=== PATIENT | male | born 1930 | race Caucasian/White ===

== ENCOUNTER 2017-03-13 09:43 | Outpatient (CLI) | payer MEDICARE ==
--- NOTE | 2017-03-13 11:04 | RAD ---
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 COMPARISON: Prior exam dated 12/13/2016. FINDINGS: There is slight elevation of the left hemidiaphragm, which is stable. Mild hazy opacity within the l eft lower lobe is similar. Chronic lung changes are otherwise similar. Heart size and pulmonary vas culature are within normal limits. The wedge compression abnormality of T12 is stable. IMPRESSION: 1. Stable exam. 2. Chronic lung change involving left lower lobe with elevation of the left hemidiaphragm. 3. Stable compression abnormality of T12. POS: [facility]
== END 2017-03-13 09:44 | disposition home or self-care (01) ==
LOC: RAD 09:43
PROVIDERS: ATTEND Thoracic Surgery (Cardiothoracic Vascular Surgery)
DX: C34.12 Malignant neoplasm of upper lobe, left bronchus or lung (principal)
CPT/HCPCS: 71020

== ENCOUNTER 2017-10-04 14:28 | Outpatient (CLI) | payer MEDICARE ==
--- NOTE | 2017-10-04 14:50 | RAD ---
TWO VIEW CHEST: History: Dyspnea. Comparison: 03-13-17 FINDINGS/IMPRESSION: Mild elevation of left hemidiaphragm again noted. Stranding in the left base is again seen. No eviden ce of infiltrate or vascular congestion. Heart size is normal. No evidence of acute process or signif icant interval change. POS: [facility]
== END 2017-10-04 14:29 | disposition home or self-care (01) ==
LOC: RAD 14:28
PROVIDERS: ATTEND Thoracic Surgery (Cardiothoracic Vascular Surgery)
DX: C34.12 Malignant neoplasm of upper lobe, left bronchus or lung (principal)
CPT/HCPCS: 71046

== ENCOUNTER 2018-01-17 12:06 | Outpatient (CLI) | payer MEDICARE ==
--- NOTE | 2018-01-17 13:12 | RAD ---
PA AND LATERAL CHEST X-RAY: 01/17/2018 HISTORY: Lung cancer. COMPARISON: 10/05/2015 FINDINGS: The cardiac silhouette and pulmonary vasculature are within normal limits. There is mild elevation o f the left hemidiaphragm with surgical clips again seen in the left hilar region. There is linear sc arring again present at the left lung base. The lungs are otherwise clear. No discrete pulmonary no dule or mass is visualized on this exam. Vascular calcifications are seen in the thoracic aorta. Th ere is a stable wedge-shaped compression fracture at the T12 vertebral body. No other interval smith e. IMPRESSION: 1. Stable chest without evidence of an acute cardiopulmonary process. 2. Post surgical changes, left hemithorax. 3. Stable wedge shaped compression fracture of the T12 vertebral body. POS: [facility]
== END 2018-01-17 12:07 | disposition home or self-care (01) ==
LOC: RAD 12:06
PROVIDERS: ATTEND Internal Medicine Critical Care Medicine
DX: C34.90 Malignant neoplasm of unspecified part of unspecified bronchus or lung (principal); S22.080A Wedge compression fracture of T11-T12 vertebra, initial encounter for closed fracture; Z98.890 Other specified postprocedural states
CPT/HCPCS: 71046

== ENCOUNTER 2018-04-04 10:17 | Outpatient (CLI) | payer MEDICARE ==
--- NOTE | 2018-04-04 12:30 | RAD ---
TWO VIEWS CHEST: History: 87-year-old male with history of malignant neoplasm of the lung. Follow up. Comparison: 01-17-18 FINDINGS: Stable left costophrenic angle blunting, mild left hemidiaphragm elevation, and some pleural based sc arring. Heart size is normal. Tiny right upper lobe granuloma calcification. No confluent pneumonia, overt edema, or pleural effusion. IMPRESSION: Stable chest. No evidence of metastasis. Atherosclerosis of the aorta with ectasia. POS: [facility]
== END 2018-04-04 10:18 | disposition home or self-care (01) ==
LOC: RAD 10:17
PROVIDERS: ATTEND Thoracic Surgery (Cardiothoracic Vascular Surgery)
DX: C34.12 Malignant neoplasm of upper lobe, left bronchus or lung (principal); I70.0 Atherosclerosis of aorta; I77.819 Aortic ectasia, unspecified site
CPT/HCPCS: 71046

== ENCOUNTER 2019-01-09 13:28 | Outpatient (CLI) | payer MEDICARE ==
--- NOTE | 2019-01-09 13:54 | RAD ---
EXAM: Chest 2 views: HISTORY: Left upper lobe neoplasm COMPARISON: 03/27/2018 FINDINGS: There is a normal-sized cardiomediastinal silhouette. There is no evidence of consolidation, mass, or pleural effusion. Degenerative changes are seen in the spine. IMPRESSION: No evidence of acute cardiopulmonary disease
== END 2019-01-09 13:29 | disposition home or self-care (01) ==
LOC: RAD 13:28
PROVIDERS: ATTEND Thoracic Surgery (Cardiothoracic Vascular Surgery)
DX: C34.12 Malignant neoplasm of upper lobe, left bronchus or lung (principal)
CPT/HCPCS: 71046

== ENCOUNTER 2019-02-20 14:05 | Outpatient (CLI) | payer MEDICARE ==
--- NOTE | 2019-02-20 14:20 | RAD ---
XR Chest Pa Lat @ [facility] HISTORY: Dyspnea COMPARISON: 01/09/2019 FINDINGS: The heart size is normal. The lungs are well expanded without focal areas of consolidation, pneumothorax or pleural effusions. There is continued elevation of the left hemidiaphragm. Mild chronic changes are stable. There are de generative changes in the spine. IMPRESSION: No radiographic evidence of acute cardiopulmonary process.
== END 2019-02-20 14:06 | disposition home or self-care (01) ==
LOC: RAD 14:05
PROVIDERS: ATTEND Internal Medicine Critical Care Medicine
DX: R06.00 Dyspnea, unspecified (principal)
CPT/HCPCS: 71046

== ENCOUNTER 2020-03-26 07:38 | Outpatient (CLI) | payer MEDICARE ==
--- NOTE | 2020-03-26 08:55 | RAD ---
CHEST 2 VIEWS: HISTORY: Dyspnea. COMPARISON: 02/20/2019. FINDINGS: Minimal elevation of the left hemidiaphragm and blunting of the left costophrenic angle, stable. Hea rt within normal limits. No confluent pneumonia, overt edema, or pleural effusion. IMPRESSION: No significant acute intrathoracic disease. Stable from prior study. POS: [facility]
== END 2020-03-26 07:39 | disposition home or self-care (01) ==
LOC: BICRAD 07:38
PROVIDERS: ATTEND Internal Medicine Critical Care Medicine
DX: R06.00 Dyspnea, unspecified (principal)
CPT/HCPCS: 71046

== ENCOUNTER 2020-07-28 11:49 | Outpatient (CLI) | payer MEDICARE | END 2020-07-28 11:50 | disposition home or self-care (01) | LOC: RAD 11:49 | PROVIDERS: ATTEND Thoracic Surgery (Cardiothoracic Vascular Surgery) | DX: C34.12 Malignant neoplasm of upper lobe, left bronchus or lung (principal) | CPT/HCPCS: 71046 ==

== ENCOUNTER 2020-09-17 16:22 | Outpatient (CLI) | payer MEDICARE | END 2020-09-17 16:23 | disposition home or self-care (01) | LOC: LABBT 16:22 | PROVIDERS: ATTEND Thoracic Surgery (Cardiothoracic Vascular Surgery) | DX: Z01.812 Encounter for preprocedural laboratory examination (principal); I25.10 Atherosclerotic heart disease of native coronary artery without angina pectoris; Z20.822 Contact with and (suspected) exposure to COVID-19 | CPT/HCPCS: 80048; 85027; U0003; U0005; 86850; 86900; 86901; 87635 ==

== ENCOUNTER 2020-09-17 16:30 | Inpatient (IN) | payer MEDICARE ==
[2020-09-17 17:59] LABS: Hemoglobin 12.6 g/dL (13.5-17.5); Mean Corpuscular HGB CONC 31.9 g/dL (32.0-36.0); Mean Corpuscular Hemoglobin 29.6 pg (27.0-33.0); Mean Corpuscular Volume 92.9 fl (81.2-95.1); Mean Platelet Volume 11.2 fl (7.4-10.4); Platelet Count 188 10x3/uL (150-450); RBC Distribution Width 15.3 % (11.5-14.5); Red Blood Cell (RBC) Count 4.25 10x6/uL (4.32-5.72); White Blood Cell (WBC) Count 5.7 10x3/uL (3.5-10.5)
[2020-09-17 18:09] LABS: Anion Gap 12 mmol/L (10-20); BUN (Urea Nitrogen) 17 mg/dL (8.4-25.7); Calc. Creatinine Clearance 0 mL/min (70-130); Calcium 9.3 mg/dL (7.8-10.44); Carbon Dioxide 28 mmol/L (23-31); Chloride 104 mmol/L (98-107); Glucose 84 mg/dL (83-110); Potassium 4.3 mmol/L (3.5-5.1); Sodium 140 mmol/L (136-145)
[2020-09-18 01:47] LABS: SARS-CoV-2 PCR by NAA Not Detected (NotDetected)
[2020-09-22] MEDS ORDERED: Albumin 5% 500 ML ONE (06:18)
[2020-09-22] MEDS ORDERED: Dexamethasone 4 mg/ml Vial ONE (06:18)
[2020-09-22] MEDS ORDERED: Bupivacaine PF 0.5% 30 ML VIAL ONE (06:18)
[2020-09-22] MEDS ORDERED: EPINEPHrine 1 MG/ML AMP ONE ×2 (06:18→07:39)
[2020-09-22] MEDS ORDERED: Midazolam HCl 2 mg/2 ml Vial ONE (06:59)
[2020-09-22] MEDS ORDERED: Fentanyl 100 MCG/2 ML VIAL ONE (06:59)
[2020-09-22] MEDS ORDERED: Magnesium Sulfate 1 GM/2 ML VIAL ONE (07:39)
[2020-09-22] MEDS ORDERED: Aminocaproic Acid 5 GM/20 ML VIAL ONE (07:39)
[2020-09-22] MEDS ORDERED: Calcium Chloride 1 GM/10 ML Abboject SYRINGE ONE (07:39)
[2020-09-22] MEDS ORDERED: Potassium Chloride 60 MEQ/30 ML VIAL ONE (07:39)
[2020-09-22] MEDS ORDERED: Heparin 30,000 units/30 ml VIAL ONE (07:39)
[2020-09-22] MEDS ORDERED: Papaverine 60 MG/2 ML VIAL ONE (07:39)
[2020-09-22] MEDS ORDERED: Sodium Bicarb 50 MEQ/50 ML Abboject 8.4% SYRINGE ONE (07:39)
[2020-09-22] MEDS ORDERED: Mannitol 12.5 GM/50 ML ONE (07:39)
[2020-09-22] MEDS ORDERED: PROPOFOL 200 MG/20 ML VIAL ONE (07:39)
[2020-09-22] MEDS ORDERED: Heparin 5,000 UNITS/ML VIAL ONE (07:39)
[2020-09-22] MEDS ORDERED: Thrombin 5000 UNITS/5 ML VIAL ONE (07:39)
[2020-09-22] MEDS ORDERED: Vecuronium 10 MG VIAL ONE (07:39)
[2020-09-22] MEDS ORDERED: Nitroglycerin 50 MG/250 ML BOT ONE (07:39)
[2020-09-22] MEDS ORDERED: Lidocaine 2% PF 100 mg/5 ml Syringe ONE (07:39)
[2020-09-22] MEDS ORDERED: Nitroglycerin 50 MG/250 ML BOT 250 ML IVPB PRN (11:08)
[2020-09-22] MEDS ORDERED: Ondansetron PF 4 MG/2 ML Vial IVP PRN (11:08)
[2020-09-22] MEDS ORDERED: Morphine 2 MG/ML VIAL SLOW IVP PRN (11:08)
[2020-09-22] MEDS ORDERED: Fentanyl 100 MCG/2 ML VIAL SLOW IVP PRN ×2 (11:08)
[2020-09-22] MEDS ORDERED: Phenylephrine 40 MG in Sodium Chloride 0.9% 250 ML 250 ML IVPB PRN (11:08)
[2020-09-22] MEDS ORDERED: Promethazine HCl 25 MG/ML VIAL IM PRN (11:08)
[2020-09-22] MEDS ORDERED: Potassium Chloride 20 MEQ/100 ML PREMIX BAG IVPB PRN (11:08)
[2020-09-22] MEDS ORDERED: Acetaminophen 325 MG TAB PO PRN (11:08)
[2020-09-22] MEDS ORDERED: Bisacodyl 5 MG TAB PO PRN (11:08)
[2020-09-22] MEDS ORDERED: Hetastarch 6% 500 ML 500 ML IVPB PRN (11:08)
[2020-09-22] MEDS ORDERED: hydrALAZINE 20 MG/ML VIAL SLOW IVP PRN (11:08)
[2020-09-22] MEDS ORDERED: Bisacodyl 10 MG SUPP PR PRN (11:08)
[2020-09-22] MEDS ORDERED: Mag-Al 1200 mg/1200 mg/30 ML UDCUP PO PRN (11:08)
[2020-09-22] MEDS ORDERED: D5 1/2 NS w/20 mEq KCL 1,000 ML IV SCH (11:08)
[2020-09-22] MEDS ORDERED: traMADol HCl 50 MG TAB PO PRN ×2 (11:08)
[2020-09-22] MEDS ORDERED: Guaifenesin DM 100-10/5 ML UDCUP PO PRN (11:08)
[2020-09-22 11:22] LABS: Actual Bicarbonate (HCO3a) 22.8 mEq/L (22-28); Base Excess (BEa) -1.3 mEq/L (-2.0 to +3.0); CO2 Tension 35.8 mmHg (35.0-45.0); Calcium, Ionized (arterial) 1.06 mmol/L (1.12-1.30); Carboxyhemoglobin (COHb) 0.2 gm% (0.0-3.0); Hemoglobin (Hb) 10.8 g/dL (14.0-18.0); O2 Tension (PaO2), arterial 207.1 mmHg (> 60.0); Potassium - ABG Lab 4.16 mmol/L (3.70-5.30); Puncture Site Arterial Line; pH, Arterial 7.42 (7.35-7.45)
[2020-09-22] MEDS ORDERED: HUMULIN R 100 UNITS in Sodium Chloride 0.9% 100 ML IVPB SCH (11:30)
[2020-09-22] MEDS ORDERED: Dextrose 5% in Water 1,000 ML IV PRN (11:30)
[2020-09-22] MEDS ORDERED: Lantus 1000 UNITS/10 ML VIAL SC PRN (11:30)
[2020-09-22] MEDS ORDERED: Dextrose 50% Abboject 50 ML SYRINGE SLOW IVP PRN (11:30)
[2020-09-22 11:36] LABS: #Eosinphils 0.1 thou/uL (0.0-0.7); #Lymphocytes 1.6 thou/uL (1.20-3.40); #Monocytes 0.6 thou/uL (0.11-0.59); #Neutrophils 16.1 thou/uL (1.40-6.50); %Basophils 0.1 % (0.0-1.0); %Eosinophils 0.5 % (0.0-10.0); %Lymphocytes 8.8 % (21.0-51.0); %Monocytes 3.4 % (0.0-10.0); %Neutrophils 87.2 % (42.0-75.0); Hemoglobin 10.3 g/dL (14.0-18.0); Mean Corpuscular HGB CONC 30.7 g/dL (32.0-36.0); Mean Corpuscular Hemoglobin 28.7 pg (27.0-31.0); Mean Corpuscular Volume 93.5 fL (78.0-98.0); Mean Platelet Volume 9.7 fL (7.4-10.4); Platelet Count 137 thou/uL (130-400); RBC Distribution Width 14.3 % (11.5-14.5); White Blood Cell (WBC) Count 18.5 thou/uL (4.8-10.8)
[2020-09-22 11:51] LABS: INR-International Normal Ratio 1.2; PTT 35.6 sec (22.9-36.1); Prothrombin Time 15.8 sec (12.0-14.7)
[2020-09-22 11:59] LABS: Anion Gap 13 mmol/L (10-20); BUN (Urea Nitrogen) 8 mg/dL (8.4-25.7); Calc. Creatinine Clearance 73 mL/min (70-130); Calcium 7.4 mg/dL (7.8-10.44); Carbon Dioxide 21 mmol/L (23-31); Chloride 109 mmol/L (98-107); Glucose 174 mg/dL (83-110); Potassium 4.2 mmol/L (3.5-5.1); Sodium 139 mmol/L (136-145)
[2020-09-22] MEDS: Ketorolac Tromethamine 30 MG/ML VIAL IVP SCH ×2 (12:12→17:46)
[2020-09-22] MEDS: Insulin Regular 300 UNITS/3 ML VIAL SC PRN ×2 (12:12→16:58)
[2020-09-22] MEDS ORDERED: Phenylephrine 40 MG/NS 250 ML 40 MG in Premix Bag 1 BAG IVPB SCH (14:15)
[2020-09-22] MEDS: CEFAZOLIN 2 GM in Premix Bag 1 BAG IVPB SCH ×2 (14:39→21:05)
[2020-09-22 14:54] LABS: Actual Bicarbonate (HCO3a) 22.5 mEq/L (22-28); Base Excess (BEa) -2.8 mEq/L (-2.0 to +3.0); CO2 Tension 40.8 mmHg (35.0-45.0); Calcium, Ionized (arterial) 1.05 mmol/L (1.12-1.30); Carboxyhemoglobin (COHb) 0.3 gm% (0.0-3.0); Hemoglobin (Hb) 10.1 g/dL (14.0-18.0); Potassium - ABG Lab 4.31 mmol/L (3.70-5.30); pH, Arterial 7.36 (7.35-7.45)
[2020-09-22 14:59] LABS: Puncture Site Arterial Line
[2020-09-22 15:10] VITALS: BMI 23.5
[2020-09-22 17:02] LABS: Hemoglobin 9.7 g/dL (14.0-18.0)
[2020-09-22 17:16] LABS: Potassium 4.2 mmol/L (3.5-5.1)
[2020-09-22] MEDS ORDERED: Famotidine/PF 20 mg/2ml Vial SLOW IVP SCH (21:00)
[2020-09-22] MEDS: Atorvastatin Calcium 20 MG TAB PO SCH (21:05)
[2020-09-23] MEDS: Ketorolac Tromethamine 30 MG/ML VIAL IVP SCH ×4 (00:04→17:34)
[2020-09-23 05:00] LABS: Anion Gap 11 mmol/L (10-20); BUN (Urea Nitrogen) 14 mg/dL (8.4-25.7); Calc. Creatinine Clearance 61 mL/min (70-130); Calcium 7.3 mg/dL (7.8-10.44); Carbon Dioxide 19 mmol/L (23-31); Chloride 112 mmol/L (98-107); Glucose 129 mg/dL (83-110); Potassium 4.1 mmol/L (3.5-5.1); Sodium 138 mmol/L (136-145)
[2020-09-23 05:03] LABS: #Lymphocytes 0.6 thou/uL (1.20-3.40); #Monocytes 0.8 thou/uL (0.11-0.59); #Neutrophils 6.4 thou/uL (1.40-6.50); %Basophils 0.1 % (0.0-1.0); %Eosinophils 0.1 % (0.0-10.0); %Lymphocytes 7.6 % (21.0-51.0); %Monocytes 9.7 % (0.0-10.0); %Neutrophils 82.4 % (42.0-75.0); Band 7 % (5-11); Hemoglobin 8.2 g/dL (14.0-18.0); Hypochromia SLIGHT = 6-15 cells (100X) (0-5/hpf); Lymphocytes 7 % (21-51); MDiff Complete? YES; Mean Corpuscular HGB CONC 32.5 g/dL (32.0-36.0); Mean Corpuscular Hemoglobin 30.1 pg (27.0-31.0); Mean Corpuscular Volume 92.7 fL (78.0-98.0); Mean Platelet Volume 9.6 fL (7.4-10.4); Monocytes 5 % (0-10); Neutrophil 81 % (42-75); Platelet Count 105 thou/uL (130-400); Platelet Morphology Comment Appears Decreased; RBC Distribution Width 14.4 % (11.5-14.5); Red Blood Cell (RBC) Count 2.72 mill/uL (4.70-6.10); White Blood Cell (WBC) Count 7.7 thou/uL (4.8-10.8)
[2020-09-23] MEDS: CEFAZOLIN 2 GM in Premix Bag 1 BAG IVPB SCH (05:45)
[2020-09-23] MEDS ORDERED: Mag-Al 1200 mg/1200 mg/30 ML UDCUP PO PRN (06:46)
[2020-09-23] MEDS ORDERED: Nitroglycerin 0.4 MG TAB (25 Tab Bottle) SL PRN (06:46)
[2020-09-23] MEDS ORDERED: Bisacodyl 5 MG TAB PO PRN (06:46)
[2020-09-23] MEDS ORDERED: Ondansetron PF 4 MG/2 ML Vial IVP PRN (06:46)
[2020-09-23] MEDS ORDERED: diphenhydrAMINE 25 MG CAP PO PRN (06:46)
[2020-09-23] MEDS ORDERED: Acetaminophen 325 MG TAB PO PRN (06:46)
[2020-09-23] MEDS ORDERED: Milk Of Magnesia 30 ML UDCUP PO PRN (06:46)
[2020-09-23] MEDS ORDERED: Zolpidem Tartrate 5 MG TAB PO PRN (06:46)
[2020-09-23] MEDS ORDERED: Fentanyl 100 MCG/2 ML VIAL SLOW IVP PRN (06:46)
[2020-09-23] MEDS ORDERED: Guaifenesin DM 100-10/5 ML UDCUP PO PRN (06:46)
[2020-09-23] MEDS ORDERED: Mineral Oil ENEMA PR PRN (06:46)
[2020-09-23] MEDS ORDERED: Bisacodyl 10 MG SUPP PR PRN (06:46)
[2020-09-23] MEDS: Famotidine 20 MG TAB PO SCH ×2 (08:53→20:35)
[2020-09-23] MEDS ORDERED: Aspirin 325 mg Enteric Coated Tablet PO SCH (09:00)
[2020-09-23] MEDS ORDERED: Aspirin 325 MG TAB PO SCH (09:00)
[2020-09-23 14:09] LABS: Actual Bicarbonate (HCO3a) 29.9 mEq/L (22-28); Analyzer IN Cardio OR; Base Excess (BEa) 4.3 mEq/L (-2.0 to +3.0); CO2 Tension 49.8 mmHg (35.0-45.0); Calcium, Ionized (arterial) 1.05 mmol/L (1.12-1.30); Carboxyhemoglobin (COHb) 0.3 gm% (0.0-3.0); Hemoglobin (Hb) 10.7 g/dL (14.0-18.0); Potassium - ABG Lab 3.96 mmol/L (3.70-5.30)
[2020-09-23 14:10] LABS: Actual Bicarbonate (HCO3a) 27.2 mEq/L (22-28); Analyzer IN Cardio OR; Base Excess (BEa) 2.3 mEq/L (-2.0 to +3.0); Calcium, Ionized (arterial) 1.11 mmol/L (1.12-1.30); Carboxyhemoglobin (COHb) 0.7 gm% (0.0-3.0); O2 Tension (PaO2), arterial 447.3 mmHg (> 60.0); Potassium - ABG Lab 4.61 mmol/L (3.70-5.30); pH, Arterial 7.41 (7.35-7.45)
[2020-09-23 14:10] LABS: Actual Bicarbonate (HCO3a) 26.5 mEq/L (22-28); Analyzer IN Cardio OR; Base Excess (BEa) 3.4 mEq/L (-2.0 to +3.0); Calcium, Ionized (arterial) 0.86 mmol/L (1.12-1.30); Carboxyhemoglobin (COHb) 0.7 gm% (0.0-3.0); Hemoglobin (Hb) 8.5 g/dL (14.0-18.0); O2 Tension (PaO2), arterial 427.9 mmHg (> 60.0); Potassium - ABG Lab 4.06 mmol/L (3.70-5.30); pH, Arterial 7.51 (7.35-7.45)
[2020-09-23 14:10] LABS: Actual Bicarbonate (HCO3a) 25.7 mEq/L (22-28); Analyzer IN Cardio OR; Base Excess (BEa) 1.6 mEq/L (-2.0 to +3.0); CO2 Tension 37.5 mmHg (35.0-45.0); Calcium, Ionized (arterial) 0.96 mmol/L (1.12-1.30); Carboxyhemoglobin (COHb) 1.3 gm% (0.0-3.0); Hemoglobin (Hb) 7.6 g/dL (14.0-18.0); O2 Tension (PaO2), arterial 375.6 mmHg (> 60.0); Potassium - ABG Lab 4.78 mmol/L (3.70-5.30); pH, Arterial 7.45 (7.35-7.45)
[2020-09-23 14:11] LABS: Actual Bicarbonate (HCO3a) 25.4 mEq/L (22-28); Analyzer IN Cardio OR; Base Excess (BEa) 0.8 mEq/L (-2.0 to +3.0); CO2 Tension 40.7 mmHg (35.0-45.0); Calcium, Ionized (arterial) 1.06 mmol/L (1.12-1.30); Carboxyhemoglobin (COHb) 0.3 gm% (0.0-3.0); Hemoglobin (Hb) 9.8 g/dL (14.0-18.0); O2 Tension (PaO2), arterial 394.1 mmHg (> 60.0); Potassium - ABG Lab 4.31 mmol/L (3.70-5.30); pH, Arterial 7.41 (7.35-7.45)
[2020-09-23 14:13] LABS: Actual Bicarbonate (HCO3a) 26.3 mEq/L (22-28); Analyzer IN Cardio OR; Base Excess (BEa) 3.2 mEq/L (-2.0 to +3.0); CO2 Tension 34.9 mmHg (35.0-45.0); Calcium, Ionized (arterial) 1.08 mmol/L (1.12-1.30); Carboxyhemoglobin (COHb) 0.5 gm% (0.0-3.0); Hemoglobin (Hb) 11.3 g/dL (14.0-18.0); O2 Tension (PaO2), arterial 443.4 mmHg (> 60.0); Potassium - ABG Lab 3.92 mmol/L (3.70-5.30); Puncture Site Arterial Line
[2020-09-23 14:16] LABS: Puncture Site Arterial Line
[2020-09-23 14:16] LABS: Puncture Site Arterial Line
[2020-09-23 14:17] LABS: Puncture Site Arterial Line
[2020-09-23 14:17] LABS: Puncture Site Arterial Line
[2020-09-23 14:18] LABS: Puncture Site Arterial Line
[2020-09-23] MEDS: Atorvastatin Calcium 20 MG TAB PO SCH (20:35)
[2020-09-24] MEDS: Ketorolac Tromethamine 30 MG/ML VIAL IVP SCH ×4 (00:14→17:32)
[2020-09-24] MEDS: Aspirin 81 mg Enteric Coated Tablet PO SCH (09:45)
[2020-09-24] MEDS: Famotidine 20 MG TAB PO SCH ×2 (09:45→21:01)
[2020-09-24] MEDS: Clopidogrel Bisulfate 75 MG TAB PO SCH (09:45)
[2020-09-24] MEDS: Atorvastatin Calcium 20 MG TAB PO SCH (21:02)
[2020-09-25] MEDS: Ketorolac Tromethamine 30 MG/ML VIAL IVP SCH ×3 (00:19→12:31)
[2020-09-25] MEDS: Aspirin 81 mg Enteric Coated Tablet PO SCH (08:33)
[2020-09-25] MEDS: Famotidine 20 MG TAB PO SCH (08:33)
[2020-09-25] MEDS: Clopidogrel Bisulfate 75 MG TAB PO SCH (08:34)
[2020-09-25 15:45] VITALS: BP 132/62; TEMP 98.9
== END 2020-09-25 18:40 | disposition home or self-care (01) | DRG 236 ==
LOC: SURG A 09-22 05:59 → CCU 09-22 10:57 → 2NO 09-23 15:35
PROVIDERS: ADMIT Thoracic Surgery (Cardiothoracic Vascular Surgery); ATTEND Thoracic Surgery (Cardiothoracic Vascular Surgery)
PROC: 021109W Bypass Coronary Artery, Two Arteries from Aorta with Autologous Venous Tissue, Open Approach (ICD-10-PCS; principal; 2020-09-22)
PROC: 02100Z9 Bypass Coronary Artery, One Artery from Left Internal Mammary, Open Approach (ICD-10-PCS; 2020-09-22)
PROC: 06BP4ZZ Excision of Right Saphenous Vein, Percutaneous Endoscopic Approach (ICD-10-PCS; 2020-09-22)
PROC: 5A1221Z Performance of Cardiac Output, Continuous (ICD-10-PCS; 2020-09-22)
DX: I25.110 Atherosclerotic heart disease of native coronary artery with unstable angina pectoris (principal); I10 Essential (primary) hypertension; E78.2 Mixed hyperlipidemia; Z20.822 Contact with and (suspected) exposure to COVID-19; I65.22 Occlusion and stenosis of left carotid artery; I95.9 Hypotension, unspecified; Z79.82 Long term (current) use of aspirin; Z90.89 Acquired absence of other organs; Z98.890 Other specified postprocedural states; Z85.828 Personal history of other malignant neoplasm of skin; Z87.891 Personal history of nicotine dependence; Z90.2 Acquired absence of lung [part of]; Z85.118 Personal history of other malignant neoplasm of bronchus and lung
CPT/HCPCS: 36416; 36430; 71045; 80048; 82805; 85025; 85027; 85610; 85730; 86850; 86900; 86901; 87635; 93005; 93010; 93798; 94002; 94150; J0171; J0690; J1100; J1642; J1644; J1815; J1885; J2001; J2150; J2250; J2440; J2704; J3010; J3370; J3475; J3480; J3490; P9045; S0017; S0020; S0028; U0003; U0005

== ENCOUNTER 2020-10-03 12:13 | Inpatient (IN) | payer MEDICARE ==
[2020-10-03] MEDS ORDERED: Fentanyl 100 MCG/2 ML VIAL ONE (12:17)
[2020-10-03] MEDS ORDERED: Furosemide 40 MG/4 ML VIAL ONE (12:46)
[2020-10-03] MEDS ORDERED: Nitroglycerin 2% Ointment 1 INCH/1 GM Packet ONE (12:46)
[2020-10-03 12:50] LABS: #Eosinphils 0.4 thou/uL (0.0-0.7); #Lymphocytes 2.3 thou/uL (1.20-3.40); #Monocytes 1.1 thou/uL (0.11-0.59); #Neutrophils 11.4 thou/uL (1.40-6.50); %Basophils 0.3 % (0.0-1.0); %Eosinophils 2.6 % (0.0-10.0); %Lymphocytes 15.1 % (21.0-51.0); %Monocytes 7.4 % (0.0-10.0); %Neutrophils 74.6 % (42.0-75.0); Hemoglobin 11.8 g/dL (14.0-18.0); Mean Corpuscular HGB CONC 32.9 g/dL (32.0-36.0); Mean Corpuscular Volume 94.2 fL (78.0-98.0); Mean Platelet Volume 7.7 fL (7.4-10.4); Platelet Count 521 thou/uL (130-400); RBC Distribution Width 15.2 % (11.5-14.5); Red Blood Cell (RBC) Count 3.82 mill/uL (4.70-6.10); White Blood Cell (WBC) Count 15.3 thou/uL (4.8-10.8)
[2020-10-03 13:13] LABS: ALT (SGPT) 65 U/L (8-55); AST (SGOT) 40 U/L (5-34); Alkaline Phosphatase 87 U/L (40-110); Anion Gap 14 mmol/L (10-20); BUN (Urea Nitrogen) 10 mg/dL (8.4-25.7); Bilirubin, Total 0.6 mg/dL (0.2-1.2); CK (CPK) 59 U/L (30-200); Calc. Creatinine Clearance 0 mL/min (70-130); Calcium 8.5 mg/dL (7.8-10.44); Carbon Dioxide 26 mmol/L (23-31); Chloride 101 mmol/L (98-107); Globulin 2.6 g/dL (2.4-3.5); Glucose 113 mg/dL (83-110); Lipase 10 U/L (8-78); Potassium 3.5 mmol/L (3.5-5.1); Protein, Total 6.6 g/dL (5.8-8.1); Sodium 137 mmol/L (136-145)
[2020-10-03 13:34] LABS: CKMB 2.3 ng/mL (0-6.6)
[2020-10-03] MEDS ORDERED: Senokot S 8.6-50 MG TAB PO PRN (14:02)
[2020-10-03] MEDS ORDERED: Acetaminophen 325 MG TAB PO PRN (14:02)
[2020-10-03] MEDS ORDERED: Ondansetron PF 4 MG/2 ML Vial IVP PRN (14:02)
[2020-10-03] MEDS ORDERED: traMADol HCl 50 MG TAB PO PRN (14:04)
[2020-10-03 14:11] LABS: SARS-CoV-2 NAA Rapid Test Not Detected (NotDetected)
[2020-10-03] MEDS ORDERED: Aspirin Chewable 81 MG TAB ONE (14:47)
[2020-10-03 15:53] LABS: Troponin I 0.051 ng/mL (< 0.028)
[2020-10-03 16:38] VITALS: BMI 23.5
[2020-10-03 19:08] LABS: Troponin I 0.034 ng/mL (< 0.028)
[2020-10-03] MEDS ORDERED: Furosemide 40 MG/4 ML VIAL SLOW IVP SCH (20:00)
[2020-10-03] MEDS: Atorvastatin Calcium 20 MG TAB PO SCH (20:16)
[2020-10-04 04:18] LABS: ALT (SGPT) 49 U/L (8-55); AST (SGOT) 26 U/L (5-34); Albumin 3.3 g/dL (3.4-4.8); Alkaline Phosphatase 68 U/L (40-110); Anion Gap 11 mmol/L (10-20); BUN (Urea Nitrogen) 10 mg/dL (8.4-25.7); Bilirubin, Total 0.7 mg/dL (0.2-1.2); Calc. Creatinine Clearance 67 mL/min (70-130); Calcium 7.8 mg/dL (7.8-10.44); Carbon Dioxide 25 mmol/L (23-31); Chloride 104 mmol/L (98-107); Globulin 2.1 g/dL (2.4-3.5); Glucose 99 mg/dL (83-110); Magnesium 1.9 mg/dL (1.6-2.6); Potassium 3.2 mmol/L (3.5-5.1); Protein, Total 5.4 g/dL (5.8-8.1); Sodium 137 mmol/L (136-145)
[2020-10-04] MEDS ORDERED: Potassium Chloride 20 MEQ TAB PO SCH ×2 (04:30→07:30)
[2020-10-04] MEDS ORDERED: Magnesium 2 GM/50 ML 2 GM in Premix Bag 1 BAG IVPB SCH ×2 (04:30→07:15)
[2020-10-04] MEDS ORDERED: Electrolyte Replacement Protocol FS PRN (04:30)
[2020-10-04] MEDS ORDERED: Electrolyte Replacement Protocol 1 EACH FS SCH (04:30)
[2020-10-04 04:37] LABS: #Eosinphils 0.2 thou/uL (0.0-0.7); #Lymphocytes 0.8 thou/uL (1.20-3.40); #Monocytes 0.6 thou/uL (0.11-0.59); %Basophils 0.5 % (0.0-1.0); %Eosinophils 2.7 % (0.0-10.0); %Lymphocytes 9.5 % (21.0-51.0); %Monocytes 6.6 % (0.0-10.0); %Neutrophils 80.6 % (42.0-75.0); Hemoglobin 10.2 g/dL (14.0-18.0); Mean Corpuscular Hemoglobin 30.1 pg (27.0-31.0); Mean Corpuscular Volume 94.2 fL (78.0-98.0); Mean Platelet Volume 7.6 fL (7.4-10.4); Platelet Count 406 thou/uL (130-400); RBC Distribution Width 15.2 % (11.5-14.5); Red Blood Cell (RBC) Count 3.38 mill/uL (4.70-6.10); White Blood Cell (WBC) Count 8.7 thou/uL (4.8-10.8)
[2020-10-04] MEDS: Furosemide 40 MG/4 ML VIAL SLOW IVP SCH ×2 (05:29→15:00)
[2020-10-04] MEDS: Enoxaparin Sodium 40 MG/0.4 ML SYRINGE SC SCH (09:15)
[2020-10-04] MEDS: Clopidogrel Bisulfate 75 MG TAB PO SCH (09:16)
[2020-10-04] MEDS: Aspirin Chewable 81 MG TAB PO SCH (09:16)
[2020-10-04] MEDS: Atorvastatin Calcium 20 MG TAB PO SCH (21:02)
[2020-10-05] MEDS: Furosemide 40 MG/4 ML VIAL SLOW IVP SCH ×2 (05:18→13:54)
[2020-10-05] MEDS: Clopidogrel Bisulfate 75 MG TAB PO SCH (08:47)
[2020-10-05] MEDS: Aspirin Chewable 81 MG TAB PO SCH (08:47)
[2020-10-05] MEDS: Enoxaparin Sodium 40 MG/0.4 ML SYRINGE SC SCH (08:50)
[2020-10-05] MEDS: Potassium Chloride 20 MEQ TAB PO SCH (10:18)
[2020-10-05] MEDS: Atorvastatin Calcium 20 MG TAB PO SCH (20:04)
[2020-10-06 04:05] LABS: Anion Gap 11 mmol/L (10-20); BUN (Urea Nitrogen) 19 mg/dL (8.4-25.7); Calc. Creatinine Clearance 58 mL/min (70-130); Calcium 8.1 mg/dL (7.8-10.44); Carbon Dioxide 29 mmol/L (23-31); Chloride 99 mmol/L (98-107); Glucose 108 mg/dL (83-110); Potassium 3.3 mmol/L (3.5-5.1); Sodium 136 mmol/L (136-145)
[2020-10-06] MEDS: Furosemide 40 MG/4 ML VIAL SLOW IVP SCH ×2 (05:47→13:44)
[2020-10-06] MEDS ORDERED: Potassium Chloride 20 MEQ TAB PO SCH (06:30)
[2020-10-06] MEDS: Enoxaparin Sodium 40 MG/0.4 ML SYRINGE SC SCH (09:36)
[2020-10-06] MEDS: Potassium Chloride 20 MEQ TAB PO SCH (09:37)
[2020-10-06] MEDS: Aspirin Chewable 81 MG TAB PO SCH (09:37)
[2020-10-06] MEDS: Clopidogrel Bisulfate 75 MG TAB PO SCH (09:37)
[2020-10-06 12:36] VITALS: BP 159/67
[2020-10-06 18:23] VITALS: TEMP 99.6
[2020-10-07] MEDS ORDERED: Furosemide 40 MG TAB PO SCH (07:30)
== END 2020-10-06 18:24 | disposition home or self-care (01) | DRG 293 ==
LOC: ERS 12:13 → IMCU/EMU 13:56
PROVIDERS: ADMIT Internal Medicine; ATTEND Internal Medicine
DX: I11.0 Hypertensive heart disease with heart failure (principal); I50.33 Acute on chronic diastolic (congestive) heart failure; Z20.822 Contact with and (suspected) exposure to COVID-19; E78.5 Hyperlipidemia, unspecified; E78.00 Pure hypercholesterolemia, unspecified; I25.10 Atherosclerotic heart disease of native coronary artery without angina pectoris; E87.6 Hypokalemia; Z85.118 Personal history of other malignant neoplasm of bronchus and lung; Z95.1 Presence of aortocoronary bypass graft; Z79.82 Long term (current) use of aspirin; Z79.899 Other long term (current) drug therapy; Z87.891 Personal history of nicotine dependence; Z79.01 Long term (current) use of anticoagulants
CPT/HCPCS: 0240U; 36415; 71045; 80048; 80053; 82550; 82553; 83690; 83735; 83880; 84484; 85025; 93005; 93306; 93798; 94660; 94760; 96374; J1650; J1940; J3010; J3475

== ENCOUNTER 2020-10-20 10:55 | Outpatient (CLI) | payer MEDICARE | END 2020-10-20 10:56 | disposition home or self-care (01) | LOC: BICRAD 10:55 | PROVIDERS: ATTEND Internal Medicine Critical Care Medicine | DX: R06.00 Dyspnea, unspecified (principal); J90 Pleural effusion, not elsewhere classified | CPT/HCPCS: 71046 ==

== ENCOUNTER 2021-04-05 07:42 | Outpatient (CLI) | payer MEDICARE | END 2021-04-05 07:43 | disposition home or self-care (01) | LOC: BICRAD 07:42 | PROVIDERS: ATTEND Internal Medicine Critical Care Medicine | DX: R06.00 Dyspnea, unspecified (principal) | CPT/HCPCS: 71046 ==

== ENCOUNTER 2022-07-30 18:44 | Inpatient (IN) | payer MEDICARE ==
[2022-07-30] MEDS ORDERED: Ipratropium/Albuterol 3 ML NEB ONE (19:01)
[2022-07-30] MEDS ORDERED: Furosemide 40 MG/4 ML VIAL ONE (19:13)
[2022-07-30] MEDS ORDERED: Nitroglycerin 2% Ointment 1 INCH/1 GM Packet ONE (19:24)
[2022-07-30] MEDS ORDERED: Aspirin 325 MG TAB ONE (19:24)
[2022-07-30 19:30] LABS: Actual Bicarbonate (HCO3v) 23 mEq/L (22-28); Analyzer IN Cardio ER; Base Excess -6.2 mEq/L (-2.0 to +3.0); Calcium, Ionized (venous) 1.13 mmol/L (1.16-1.32); Chloride (VBG) 102 mmol/L (98-106); Sodium 138.4 mmol/L (133-146)
[2022-07-30 19:34] LABS: #Eosinphils 0.1 thou/uL (0.0-0.7); #Lymphocytes 2.6 thou/uL (1.20-3.40); #Monocytes 0.7 thou/uL (0.11-0.59); #Neutrophils 6.4 thou/uL (1.40-6.50); %Basophils 0.4 % (0.0-1.0); %Lymphocytes 26.8 % (21.0-51.0); %Monocytes 6.7 % (0.0-10.0); %Neutrophils 65.2 % (42.0-75.0); Hemoglobin 13.4 g/dL (14.0-18.0); Mean Corpuscular HGB CONC 33.1 g/dL (32.0-36.0); Mean Corpuscular Hemoglobin 31.4 pg (27.0-31.0); Mean Platelet Volume 10.8 fL (7.4-10.4); Platelet Count 210 10x3/uL (130-400); RBC Distribution Width 15.4 % (11.5-14.5); Red Blood Cell (RBC) Count 4.28 mill/uL (4.70-6.10); White Blood Cell (WBC) Count 9.8 10x3/uL (4.8-10.8)
[2022-07-30 19:54] LABS: ALT (SGPT) 102 U/L (8-55); AST (SGOT) 59 U/L (5-34); Albumin 4.6 g/dL (3.4-4.8); Alkaline Phosphatase 66 U/L (40-110); Anion Gap 19 mmol/L (10-20); BUN (Urea Nitrogen) 17 mg/dL (8.4-25.7); Bilirubin, Total 0.8 mg/dL (0.2-1.2); Calc. Creatinine Clearance 0 mL/min (70-130); Calcium 8.8 mg/dL (7.8-10.44); Carbon Dioxide 18 mmol/L (23-31); Chloride 104 mmol/L (98-107); Estimated GFR 59; Globulin 2.3 g/dL (2.4-3.5); Glucose 210 mg/dL (83-110); Potassium 4.6 mmol/L (3.5-5.1); Protein, Total 6.9 g/dL (5.8-8.1); Sodium 136 mmol/L (136-145)
[2022-07-30 20:13] LABS: CKMB 2.5 ng/mL (0-6.6)
[2022-07-30 20:16] LABS: SARS-CoV-2 NAA Rapid Test Not Detected (NotDetected)
[2022-07-30] MEDS ORDERED: Vancomycin 1 GM/200 ML (FROZEN) BAG ONE (20:29)
[2022-07-30] MEDS ORDERED: Cefepime 2 GM VIAL ONE (20:29)
[2022-07-30 22:58] VITALS: BMI 20.5
[2022-07-30 23:34] LABS: Lactic Acid 1.3 mmol/L (0.5-2.2)
[2022-07-31] MEDS ORDERED: Electrolyte Replacement Protocol 1 EACH FS SCH (00:15)
[2022-07-31] MEDS ORDERED: HumaLOG 300 UNITS/3 ML VIAL SC SCH (00:30)
[2022-07-31] MEDS ORDERED: Dextrose 50% Abboject 50 ML SYRINGE IVP PRN (00:45)
[2022-07-31] MEDS ORDERED: HumaLOG 300 UNITS/3 ML VIAL SC PRN (00:45)
[2022-07-31] MEDS ORDERED: Dextrose 5% in Water 1,000 ML IV PRN (00:45)
[2022-07-31 03:32] LABS: #Eosinphils 0.1 thou/uL (0.0-0.7); #Monocytes 0.6 thou/uL (0.11-0.59); %Basophils 0.6 % (0.0-1.0); %Eosinophils 0.8 % (0.0-10.0); %Lymphocytes 14.7 % (21.0-51.0); %Monocytes 9.5 % (0.0-10.0); %Neutrophils 74.4 % (42.0-75.0); Hemoglobin 11.6 g/dL (14.0-18.0); Mean Corpuscular HGB CONC 34.1 g/dL (32.0-36.0); Mean Corpuscular Hemoglobin 31.7 pg (27.0-31.0); Mean Corpuscular Volume 93.2 fl (78.0-98.0); Mean Platelet Volume 10.6 fL (7.4-10.4); Platelet Count 147 10x3/uL (130-400); Red Blood Cell (RBC) Count 3.66 mill/uL (4.70-6.10); White Blood Cell (WBC) Count 6.6 10x3/uL (4.8-10.8)
[2022-07-31 03:59] LABS: ALT (SGPT) 91 U/L (8-55); AST (SGOT) 53 U/L (5-34); Albumin 3.7 g/dL (3.4-4.8); Alkaline Phosphatase 54 U/L (40-110); Anion Gap 13 mmol/L (10-20); BUN (Urea Nitrogen) 17 mg/dL (8.4-25.7); Bilirubin, Total 0.8 mg/dL (0.2-1.2); Calc. Creatinine Clearance 38 mL/min (70-130); Calcium 8.4 mg/dL (7.8-10.44); Carbon Dioxide 25 mmol/L (23-31); Chloride 106 mmol/L (98-107); Estimated GFR 58; Globulin 2.2 g/dL (2.4-3.5); Glucose 87 mg/dL (83-110); Potassium 4.5 mmol/L (3.5-5.1); Protein, Total 5.9 g/dL (5.8-8.1); Sodium 139 mmol/L (136-145)
[2022-07-31] MEDS: Furosemide 40 MG/4 ML VIAL SLOW IVP SCH ×2 (05:18→13:17)
[2022-07-31] MEDS ORDERED: Furosemide 40 MG TAB PO SCH (07:30)
[2022-07-31] MEDS ORDERED: Furosemide 20 MG TAB PO SCH (09:00)
[2022-07-31] MEDS: Famotidine 20 MG TAB PO SCH ×2 (09:38→21:54)
[2022-07-31] MEDS: Aspirin Chewable 81 MG TAB PO SCH (13:10)
[2022-07-31] MEDS: Clopidogrel Bisulfate 75 MG TAB PO SCH (13:12)
[2022-07-31] MEDS: Atorvastatin Calcium 20 MG TAB PO SCH (21:54)
[2022-08-01 03:53] LABS: #Eosinphils 0.1 thou/uL (0.0-0.7); #Lymphocytes 1.2 thou/uL (1.20-3.40); #Monocytes 0.6 thou/uL (0.11-0.59); #Neutrophils 3.8 thou/uL (1.40-6.50); %Basophils 0.6 % (0.0-1.0); %Eosinophils 2.5 % (0.0-10.0); %Lymphocytes 21.4 % (21.0-51.0); %Monocytes 10.1 % (0.0-10.0); %Neutrophils 65.4 % (42.0-75.0); Hemoglobin 12.1 g/dL (14.0-18.0); Mean Corpuscular HGB CONC 33.4 g/dL (32.0-36.0); Mean Corpuscular Hemoglobin 31.2 pg (27.0-31.0); Mean Corpuscular Volume 93.4 fl (78.0-98.0); Mean Platelet Volume 10.4 fL (7.4-10.4); Platelet Count 162 10x3/uL (130-400); RBC Distribution Width 15.1 % (11.5-14.5); Red Blood Cell (RBC) Count 3.88 mill/uL (4.70-6.10); White Blood Cell (WBC) Count 5.8 10x3/uL (4.8-10.8)
[2022-08-01 04:39] LABS: ALT (SGPT) 74 U/L (8-55); AST (SGOT) 37 U/L (5-34); Albumin 3.6 g/dL (3.4-4.8); Alkaline Phosphatase 54 U/L (40-110); Anion Gap 12 mmol/L (10-20); BUN (Urea Nitrogen) 23 mg/dL (8.4-25.7); Bilirubin, Total 0.7 mg/dL (0.2-1.2); Calc. Creatinine Clearance 40 mL/min (70-130); Calcium 8.7 mg/dL (7.8-10.44); Carbon Dioxide 27 mmol/L (23-31); Chloride 103 mmol/L (98-107); Estimated GFR 63; Globulin 2.4 g/dL (2.4-3.5); Glucose 88 mg/dL (83-110); Potassium 3.7 mmol/L (3.5-5.1); Sodium 138 mmol/L (136-145)
[2022-08-01] MEDS: Furosemide 40 MG/4 ML VIAL SLOW IVP SCH ×2 (06:43→14:02)
[2022-08-01] MEDS: Clopidogrel Bisulfate 75 MG TAB PO SCH (09:51)
[2022-08-01] MEDS: Aspirin Chewable 81 MG TAB PO SCH (09:51)
[2022-08-01] MEDS: Atorvastatin Calcium 20 MG TAB PO SCH (20:29)
[2022-08-01] MEDS: Famotidine 20 MG TAB PO SCH (20:29)
[2022-08-02] MEDS: Furosemide 40 MG/4 ML VIAL SLOW IVP SCH ×2 (05:42→14:15)
[2022-08-02 06:32] LABS: #Basophils 0.1 thou/uL (0.0-0.2); #Eosinphils 0.1 thou/uL (0.0-0.7); #Lymphocytes 1.3 thou/uL (1.20-3.40); #Monocytes 0.5 thou/uL (0.11-0.59); #Neutrophils 3.8 thou/uL (1.40-6.50); %Eosinophils 2.1 % (0.0-10.0); %Lymphocytes 22.7 % (21.0-51.0); %Monocytes 8.6 % (0.0-10.0); %Neutrophils 65.5 % (42.0-75.0); Hemoglobin 12.8 g/dL (14.0-18.0); Mean Corpuscular HGB CONC 31.2 g/dL (32.0-36.0); Mean Corpuscular Hemoglobin 29.5 pg (27.0-31.0); Mean Corpuscular Volume 94.5 fl (78.0-98.0); Platelet Count 184 10x3/uL (130-400); RBC Distribution Width 15.1 % (11.5-14.5); Red Blood Cell (RBC) Count 4.34 mill/uL (4.70-6.10); White Blood Cell (WBC) Count 5.8 10x3/uL (4.8-10.8)
[2022-08-02 06:51] LABS: ALT (SGPT) 61 U/L (8-55); AST (SGOT) 28 U/L (5-34); Albumin 3.8 g/dL (3.4-4.8); Alkaline Phosphatase 55 U/L (40-110); Anion Gap 11 mmol/L (10-20); BUN (Urea Nitrogen) 26 mg/dL (8.4-25.7); Bilirubin, Total 0.6 mg/dL (0.2-1.2); Calc. Creatinine Clearance 37 mL/min (70-130); Calcium 9.1 mg/dL (7.8-10.44); Carbon Dioxide 29 mmol/L (23-31); Chloride 102 mmol/L (98-107); Estimated GFR 61; Globulin 2.7 g/dL (2.4-3.5); Glucose 93 mg/dL (83-110); Potassium 3.9 mmol/L (3.5-5.1); Protein, Total 6.5 g/dL (5.8-8.1); Sodium 138 mmol/L (136-145)
[2022-08-02] MEDS ORDERED: ALFALFA 250 MG PO SCH (09:00)
[2022-08-02] MEDS ORDERED: GARLIC PO SCH (09:00)
[2022-08-02] MEDS ORDERED: LECITHIN 1200 MG PO SCH (09:00)
[2022-08-02] MEDS ORDERED: SAW PALMETTO 160 MG PO SCH (09:00)
[2022-08-02] MEDS ORDERED: HERB LAX PO SCH (09:00)
[2022-08-02] MEDS: Multivit, Therapeutic 1 TAB PO SCH (09:07)
[2022-08-02] MEDS: Aspirin Chewable 81 MG TAB PO SCH (09:07)
[2022-08-02] MEDS: Clopidogrel Bisulfate 75 MG TAB PO SCH (09:08)
[2022-08-02] MEDS: Cholecalciferol 1,000 UNITS (25 MCG) TAB PO SCH (09:08)
[2022-08-02] MEDS: Calcium Carbonate 500 MG ChewTAB PO SCH (09:08)
[2022-08-02] MEDS: Ascorbic Acid 500 mg Chewable Tablet PO SCH (09:08)
[2022-08-02] MEDS: Multivitamin w/Zinc Stress 1 TAB PO SCH (09:08)
[2022-08-02] MEDS: Atorvastatin Calcium 20 MG TAB PO SCH (20:19)
[2022-08-02] MEDS: Famotidine 20 MG TAB PO SCH (20:19)
[2022-08-03 04:35] LABS: #Eosinphils 0.1 thou/uL (0.0-0.7); #Lymphocytes 1.3 thou/uL (1.20-3.40); #Monocytes 0.6 thou/uL (0.11-0.59); #Neutrophils 3.9 thou/uL (1.40-6.50); %Basophils 0.5 % (0.0-1.0); %Eosinophils 1.3 % (0.0-10.0); %Lymphocytes 21.4 % (21.0-51.0); %Monocytes 9.9 % (0.0-10.0); %Neutrophils 66.8 % (42.0-75.0); Hemoglobin 13.9 g/dL (14.0-18.0); Mean Corpuscular HGB CONC 32.3 g/dL (32.0-36.0); Mean Corpuscular Volume 92.9 fl (78.0-98.0); Mean Platelet Volume 10.3 fL (7.4-10.4); Platelet Count 191 10x3/uL (130-400); RBC Distribution Width 15.3 % (11.5-14.5); Red Blood Cell (RBC) Count 4.62 mill/uL (4.70-6.10); White Blood Cell (WBC) Count 5.9 10x3/uL (4.8-10.8)
[2022-08-03 04:54] LABS: Anion Gap 12 mmol/L (10-20); BUN (Urea Nitrogen) 31 mg/dL (8.4-25.7); Calc. Creatinine Clearance 36 mL/min (70-130); Calcium 9.3 mg/dL (7.8-10.44); Carbon Dioxide 30 mmol/L (23-31); Chloride 100 mmol/L (98-107); Estimated GFR 59; Glucose 95 mg/dL (83-110); Potassium 4.3 mmol/L (3.5-5.1); Sodium 138 mmol/L (136-145)
[2022-08-03] MEDS: Furosemide 40 MG/4 ML VIAL SLOW IVP SCH ×2 (05:55→13:17)
[2022-08-03] MEDS ORDERED: ADENOSINE 60 MG/20 ML SDV ONE (08:52)
[2022-08-03] MEDS: Ascorbic Acid 500 mg Chewable Tablet PO SCH (13:14)
[2022-08-03] MEDS: Multivitamin w/Zinc Stress 1 TAB PO SCH (13:14)
[2022-08-03] MEDS: Calcium Carbonate 500 MG ChewTAB PO SCH (13:15)
[2022-08-03] MEDS: Clopidogrel Bisulfate 75 MG TAB PO SCH (13:16)
[2022-08-03] MEDS: Aspirin Chewable 81 MG TAB PO SCH (13:16)
[2022-08-03] MEDS: Cholecalciferol 1,000 UNITS (25 MCG) TAB PO SCH (13:16)
[2022-08-03] MEDS: Multivit, Therapeutic 1 TAB PO SCH (13:16)
[2022-08-03] MEDS: Atorvastatin Calcium 20 MG TAB PO SCH (20:16)
[2022-08-03] MEDS: Famotidine 20 MG TAB PO SCH (20:16)
[2022-08-04] MEDS: Furosemide 40 MG/4 ML VIAL SLOW IVP SCH ×2 (05:10→15:22)
[2022-08-04] MEDS: Clopidogrel Bisulfate 75 MG TAB PO SCH (06:11)
[2022-08-04] MEDS: Multivit, Therapeutic 1 TAB PO SCH (06:11)
[2022-08-04] MEDS: Multivitamin w/Zinc Stress 1 TAB PO SCH (06:11)
[2022-08-04] MEDS: Cholecalciferol 1,000 UNITS (25 MCG) TAB PO SCH (06:11)
[2022-08-04] MEDS: Aspirin Chewable 81 MG TAB PO SCH (06:11)
[2022-08-04] MEDS: Calcium Carbonate 500 MG ChewTAB PO SCH (06:11)
[2022-08-04] MEDS ORDERED: Lidocaine 1% (PF) 30 ML VIAL ONE (09:40)
[2022-08-04] MEDS ORDERED: Nitroglycerin 50 MG/250 ML BOT 0 ML ONE (09:41)
[2022-08-04] MEDS ORDERED: Heparin 10,000 UNITS/ 10 ML VIAL ONE (09:41)
[2022-08-04] MEDS ORDERED: Midazolam HCl 2 mg/2 ml Vial ONE (09:42)
[2022-08-04] MEDS ORDERED: FENTANYL 50 MCG/ML 1 ML VIAL ONE (09:43)
[2022-08-04] MEDS: Ascorbic Acid 500 mg Chewable Tablet PO SCH (10:29)
[2022-08-04] MEDS ORDERED: Nitroglycerin 0.4 MG TAB (25 Tab Bottle) SL PRN (12:17)
[2022-08-04] MEDS ORDERED: Sodium Chloride 0.9% 200 ML IV PRN (12:17)
[2022-08-04] MEDS ORDERED: Acetaminophen/Codeine 30-300mg Tablet PO PRN ×2 (12:17)
[2022-08-04] MEDS ORDERED: Iopamidol 370 76% 100 ML VIAL ONE ×2 (14:01→14:02)
[2022-08-04] MEDS: Famotidine 20 MG TAB PO SCH (22:04)
[2022-08-04] MEDS: Atorvastatin Calcium 20 MG TAB PO SCH (22:05)
[2022-08-05 04:35] LABS: #Eosinphils 0.2 thou/uL (0.0-0.7); #Lymphocytes 1.2 thou/uL (1.20-3.40); #Monocytes 0.6 thou/uL (0.11-0.59); #Neutrophils 4.1 thou/uL (1.40-6.50); %Basophils 0.5 % (0.0-1.0); %Eosinophils 2.5 % (0.0-10.0); %Lymphocytes 19.5 % (21.0-51.0); %Monocytes 10.6 % (0.0-10.0); %Neutrophils 66.9 % (42.0-75.0); Hemoglobin 13.2 g/dL (14.0-18.0); Mean Corpuscular HGB CONC 33.1 g/dL (32.0-36.0); Mean Corpuscular Hemoglobin 30.5 pg (27.0-31.0); Mean Corpuscular Volume 92.3 fl (78.0-98.0); Mean Platelet Volume 10.5 fL (7.4-10.4); Platelet Count 182 10x3/uL (130-400); RBC Distribution Width 14.9 % (11.5-14.5); Red Blood Cell (RBC) Count 4.32 mill/uL (4.70-6.10); White Blood Cell (WBC) Count 6.1 10x3/uL (4.8-10.8)
[2022-08-05 04:54] LABS: Anion Gap 12 mmol/L (10-20); BUN (Urea Nitrogen) 30 mg/dL (8.4-25.7); Calc. Creatinine Clearance 41 mL/min (70-130); Calcium 9.1 mg/dL (7.8-10.44); Carbon Dioxide 26 mmol/L (23-31); Chloride 102 mmol/L (98-107); Estimated GFR 72; Glucose 79 mg/dL (83-110); Potassium 4.2 mmol/L (3.5-5.1); Sodium 136 mmol/L (136-145)
[2022-08-05] MEDS: Furosemide 40 MG/4 ML VIAL SLOW IVP SCH ×2 (06:24→13:47)
[2022-08-05] MEDS: Calcium Carbonate 500 MG ChewTAB PO SCH (08:21)
[2022-08-05] MEDS: Aspirin Chewable 81 MG TAB PO SCH (08:22)
[2022-08-05] MEDS: Multivit, Therapeutic 1 TAB PO SCH (08:23)
[2022-08-05] MEDS: Clopidogrel Bisulfate 75 MG TAB PO SCH (08:23)
[2022-08-05] MEDS: Cholecalciferol 1,000 UNITS (25 MCG) TAB PO SCH (08:24)
[2022-08-05] MEDS: Ascorbic Acid 500 mg Chewable Tablet PO SCH (08:31)
[2022-08-05] MEDS: Multivitamin w/Zinc Stress 1 TAB PO SCH (08:32)
[2022-08-05] MEDS: Atorvastatin Calcium 40 MG TAB PO SCH (20:39)
[2022-08-05] MEDS: Famotidine 20 MG TAB PO SCH (20:40)
[2022-08-06] MEDS: Furosemide 40 MG/4 ML VIAL SLOW IVP SCH (06:12)
[2022-08-06 08:25] LABS: Anion Gap 13 mmol/L (10-20); BUN (Urea Nitrogen) 23 mg/dL (8.4-25.7); Calc. Creatinine Clearance 46 mL/min (70-130); Carbon Dioxide 22 mmol/L (23-31); Chloride 104 mmol/L (98-107); Estimated GFR 82; Glucose 98 mg/dL (83-110); Potassium 4.2 mmol/L (3.5-5.1); Sodium 135 mmol/L (136-145)
[2022-08-06] MEDS: Calcium Carbonate 500 MG ChewTAB PO SCH (09:00)
[2022-08-06] MEDS: Clopidogrel Bisulfate 75 MG TAB PO SCH (09:01)
[2022-08-06] MEDS: Multivit, Therapeutic 1 TAB PO SCH (09:01)
[2022-08-06] MEDS: Ascorbic Acid 500 mg Chewable Tablet PO SCH (09:01)
[2022-08-06] MEDS: Aspirin Chewable 81 MG TAB PO SCH (09:01)
[2022-08-06] MEDS: Multivitamin w/Zinc Stress 1 TAB PO SCH (09:01)
[2022-08-06] MEDS: Cholecalciferol 1,000 UNITS (25 MCG) TAB PO SCH (09:01)
[2022-08-06] MEDS: Famotidine 20 MG TAB PO SCH (21:49)
[2022-08-06] MEDS: Atorvastatin Calcium 40 MG TAB PO SCH (21:49)
[2022-08-07] MEDS: Cholecalciferol 1,000 UNITS (25 MCG) TAB PO SCH (10:19)
[2022-08-07] MEDS: Ascorbic Acid 500 mg Chewable Tablet PO SCH (10:19)
[2022-08-07] MEDS: Clopidogrel Bisulfate 75 MG TAB PO SCH (10:19)
[2022-08-07] MEDS: Furosemide 40 MG TAB PO SCH (10:19)
[2022-08-07] MEDS: Aspirin Chewable 81 MG TAB PO SCH (10:19)
[2022-08-07] MEDS: Calcium Carbonate 500 MG ChewTAB PO SCH (10:19)
[2022-08-07] MEDS: Multivit, Therapeutic 1 TAB PO SCH (10:20)
[2022-08-07] MEDS: Multivitamin w/Zinc Stress 1 TAB PO SCH (10:22)
[2022-08-07] MEDS: Famotidine 20 MG TAB PO SCH (21:13)
[2022-08-07] MEDS: Atorvastatin Calcium 40 MG TAB PO SCH (21:13)
[2022-08-08] MEDS: Furosemide 40 MG TAB PO SCH (09:10)
[2022-08-08] MEDS: Ascorbic Acid 500 mg Chewable Tablet PO SCH (09:10)
[2022-08-08] MEDS: Aspirin Chewable 81 MG TAB PO SCH (09:11)
[2022-08-08] MEDS: Calcium Carbonate 500 MG ChewTAB PO SCH (09:11)
[2022-08-08] MEDS: Clopidogrel Bisulfate 75 MG TAB PO SCH (09:12)
[2022-08-08] MEDS: Multivitamin w/Zinc Stress 1 TAB PO SCH (09:12)
[2022-08-08] MEDS: Multivit, Therapeutic 1 TAB PO SCH (09:12)
[2022-08-08] MEDS: Cholecalciferol 1,000 UNITS (25 MCG) TAB PO SCH (09:12)
[2022-08-08 19:58] VITALS: BP 106/51; TEMP 98
[2022-08-08] MEDS: Famotidine 20 MG TAB PO SCH (20:14)
[2022-08-08] MEDS: Atorvastatin Calcium 40 MG TAB PO SCH (20:14)
== END 2022-08-08 20:45 | disposition short-term general hospital (02) | DRG 286 ==
LOC: ERS 18:44 → IMCU/EMU 20:50 → 2NO 08-04 17:14
PROVIDERS: ADMIT Internal Medicine; ATTEND Internal Medicine
PROC: 5A09357 Assistance with Respiratory Ventilation, Less than 24 Consecutive Hours, Continuous Positive Airway Pressure (ICD-10-PCS; 2022-07-30)
PROC: 4A023N7 Measurement of Cardiac Sampling and Pressure, Left Heart, Percutaneous Approach (ICD-10-PCS; principal; 2022-08-04)
PROC: B2151ZZ Fluoroscopy of Left Heart using Low Osmolar Contrast (ICD-10-PCS; 2022-08-04)
PROC: B2131ZZ Fluoroscopy of Multiple Coronary Artery Bypass Grafts using Low Osmolar Contrast (ICD-10-PCS; 2022-08-04)
PROC: B2111ZZ Fluoroscopy of Multiple Coronary Arteries using Low Osmolar Contrast (ICD-10-PCS; 2022-08-04)
DX: I11.0 Hypertensive heart disease with heart failure (principal); I50.43 Acute on chronic combined systolic (congestive) and diastolic (congestive) heart failure; J96.01 Acute respiratory failure with hypoxia; J96.02 Acute respiratory failure with hypercapnia; E87.20 Acidosis, unspecified; Z20.822 Contact with and (suspected) exposure to COVID-19; I25.10 Atherosclerotic heart disease of native coronary artery without angina pectoris; R74.8 Abnormal levels of other serum enzymes; D63.8 Anemia in other chronic diseases classified elsewhere; R74.01 Elevation of levels of liver transaminase levels; R73.9 Hyperglycemia, unspecified; I08.3 Combined rheumatic disorders of mitral, aortic and tricuspid valves; E78.00 Pure hypercholesterolemia, unspecified; I77.1 Stricture of artery; I25.5 Ischemic cardiomyopathy; Z98.890 Other specified postprocedural states; Z85.118 Personal history of other malignant neoplasm of bronchus and lung; Z90.2 Acquired absence of lung [part of]; Z79.899 Other long term (current) drug therapy; Z79.82 Long term (current) use of aspirin; Z79.02 Long term (current) use of antithrombotics/antiplatelets; Z87.891 Personal history of nicotine dependence
CPT/HCPCS: 36415; 36416; 71045; 71275; 76700; 78452; 80048; 80053; 82553; 82805; 83605; 83880; 84145; 84484; 85025; 87040; 93005; 93017; 93306; 93459; 93798; 94660; 94760; 96365; 96375; 99292; A9502; C1725; C1769; C1894; J0153; J0692; J1644; J1650; J1940; J2001; J2250; J3010; J3370-JW; J7620; Q9967; U0002

== ENCOUNTER 2022-08-31 10:59 | Outpatient (CLI) | payer MEDICARE | END 2022-08-31 11:00 | disposition home or self-care (01) | LOC: BICRAD 10:59 | PROVIDERS: ATTEND Family Medicine | DX: I50.9 Heart failure, unspecified (principal) | CPT/HCPCS: 71046 ==